=== PATIENT | female | born 1985 | race African-American/Black ===

== ENCOUNTER 2016-08-22 10:25 | Emergency (ER) | payer OTHER ==
[~2016-08-22] VITALS: Ht 175.2 cm; Wt 113.4 kg
[~2016-08-22 10:25] MED LIST: ANAPROX DS550 MG PO; BACTRIM DS 8001 TA1 PO; CIPROFLOXACIN500 MG PO; FLAGYL500 MG PO; IBU800 MG PO; MEDROL DOSEPAK4 MG PO; PYRIDIUM200 MG PO
== END 2016-08-22 14:28 | disposition home or self-care (01) ==
LOC: ED 10:25
DX: S90.02XA Contusion of left ankle, initial encounter (principal); F17.200 Nicotine dependence, unspecified, uncomplicated; X58.XXXA Exposure to other specified factors, initial encounter; Y93.89 Activity, other specified; Y92.9 Unspecified place or not applicable; Y99.9 Unspecified external cause status

== ENCOUNTER 2017-03-27 08:45 | Emergency (ER) | payer OTHER ==
[~2017-03-27] VITALS: Ht 175.2 cm; Wt 136.1 kg
[2017-03-27] MEDS ORDERED: ALBUTEROL S5 MG/1 ML INH (08:50)
[2017-03-27] MEDS ORDERED: ALL DAY ALLERGY10 MG PO (08:50)
[2017-03-27] MEDS ORDERED: PHENTERMINE H37.5 M1 PO (08:50)
[2017-03-27] MEDS ORDERED: OMEPRAZOLE D/R20 MG PO (08:51)
[2017-03-27] MEDS ORDERED: PROVENTIL HFA6.7 GM INH (08:51)
[2017-03-27] MEDS ORDERED: METFORMIN HCL1000 MG PO (08:52)
[2017-03-27] MEDS ORDERED: BUPROPION HYDR100 MG PO (08:52)
[2017-03-27] MEDS ORDERED: HYDROXYZINE PAM25 M1 PO (08:52)
[2017-03-27] MEDS ORDERED: TRAZODONE50 MG PO (08:53)
[2017-03-27] MEDS ORDERED: LORAZEPAM0.5 MG PO (08:53)
[2017-03-27] MEDS ORDERED: SEPTDS PO (09:10)
== END 2017-03-27 09:41 | disposition home or self-care (01) ==
LOC: ED 08:45
DX: L02.412 Cutaneous abscess of left axilla (principal); F17.200 Nicotine dependence, unspecified, uncomplicated; E66.01 Morbid (severe) obesity due to excess calories; Z68.41 Body mass index [BMI] 40.0-44.9, adult; Z79.899 Other long term (current) drug therapy

== ENCOUNTER 2018-11-24 17:11 | Emergency (ER) | payer OTHER ==
[~2018-11-24 17:11] MED LIST changes: +ALBUTEROL S5 MG/1 ML INH; +ALL DAY ALLERGY10 MG PO; +BUPROPION HYDR100 MG PO; +CEFUROXIME AXE500 MG PO; +HYDROXYZINE PAM25 M1 PO; +LORAZEPAM0.5 MG PO; +METFORMIN HCL1000 MG PO; +OMEPRAZOLE D/R20 MG PO; +PHENTERMINE H37.5 M1 PO; +PROVENTIL HFA6.7 GM INH; +PYRIDIUM200 M1 PO; +SEPTDS PO; +TRAZODONE50 MG PO
[2018-11-24] MEDS ORDERED: AUGMENTIN 875875 MG PO (18:04)
== END 2018-11-24 19:12 | disposition home or self-care (01) ==
LOC: ED 17:11
DX: S51.851A Open bite of right forearm, initial encounter (principal); Z79.2 Long term (current) use of antibiotics; Z79.899 Other long term (current) drug therapy; W54.0XXA Bitten by dog, initial encounter; Y93.89 Activity, other specified; Y92.89 Other specified places as the place of occurrence of the external cause; Y99.8 Other external cause status

== ENCOUNTER 2018-11-27 14:21 | Emergency (ER) | payer OTHER ==
[~2018-11-27] VITALS: Ht 175.2 cm; Wt 122.5 kg
[~2018-11-27 14:21] MED LIST changes: +AUGMENTIN 875875 MG PO
== END 2018-11-27 14:58 | disposition home or self-care (01) ==
LOC: ED 14:21
DX: S51.851D Open bite of right forearm, subsequent encounter (principal); Z79.2 Long term (current) use of antibiotics; Z79.899 Other long term (current) drug therapy; W54.0XXD Bitten by dog, subsequent encounter

== ENCOUNTER 2019-04-06 08:31 | Emergency (ER) | payer OTHER ==
[~2019-04-06] VITALS: Ht 175.2 cm; Wt 122.5 kg
[2019-04-06 09:27] LABS: BILIRUBIN NEGATIVE (NEGATIVE); BLOOD NEGATIVE (NEGATIVE); CLARITY CLOUDY (CLEAR); COLOR YELLOW (YELLOW); GLUCOSE NEGATIVE (NEGATIVE); KETONE NEGATIVE (NEGATIVE); PH 6.5 (5.0-9.0)
[2019-04-06 09:28] LABS: LEUKO ESTERASE NEGATIVE (NEGATIVE); NITRITE NEGATIVE (NEGATIVE); UROBILINOGEN 0.2 E.U./dl (0.2-1.0)
[2019-04-06 09:46] LABS: BACTERIA TRACE; EPITHELIAL CELLS TNTC
[2019-04-06] MEDS ORDERED: DICLEGIS DR 101 EACH PO (10:30)
[2019-04-06] MEDS ORDERED: ZITHROMAX250 MG PO (10:30)
== END 2019-04-06 10:56 | disposition home or self-care (01) ==
LOC: ED 08:31
PROVIDERS: Emergency Medicine
DX: O99.511 Diseases of the respiratory system complicating pregnancy, first trimester (principal); J32.9 Chronic sinusitis, unspecified; J02.9 Acute pharyngitis, unspecified; O99.611 Diseases of the digestive system complicating pregnancy, first trimester; R19.7 Diarrhea, unspecified; O99.341 Other mental disorders complicating pregnancy, first trimester; F41.9 Anxiety disorder, unspecified; F32.9 Major depressive disorder, single episode, unspecified; O99.331 Smoking (tobacco) complicating pregnancy, first trimester; Z3A.01 Less than 8 weeks gestation of pregnancy; Z79.2 Long term (current) use of antibiotics; Z79.899 Other long term (current) drug therapy; Z79.84 Long term (current) use of oral hypoglycemic drugs

== ENCOUNTER → 2019-04-10 | Outpatient (CLI) | payer OTHER ==
[~2019-04-10] MED LIST changes: +DICLEGIS DR 101 EACH PO; +ZITHROMAX250 MG PO
== END | disposition home or self-care (01) ==
LOC: US 15:00
DX: N85.8 Other specified noninflammatory disorders of uterus (principal); R10.2 Pelvic and perineal pain

== ENCOUNTER 2019-12-01 08:41 | Emergency (ER) | payer OTHER ==
[~2019-12-01] VITALS: Wt 127.0 kg
[2019-12-01] MEDS ORDERED: ZYRTEC10 M2 PO (09:08)
[2019-12-01] MEDS ORDERED: OMNICEF300 MG PO (09:08)
== END 2019-12-01 09:13 | disposition home or self-care (01) ==
LOC: ED 08:41
DX: H66.91 Otitis media, unspecified, right ear (principal); F41.9 Anxiety disorder, unspecified; Z79.899 Other long term (current) drug therapy

== ENCOUNTER → 2020-01-24 | Outpatient (CLI) | payer OTHER ==
[~2020-01-24] MED LIST changes: +OMNICEF300 MG PO; +ZYRTEC10 M2 PO
== END | disposition home or self-care (01) ==
LOC: US 13:17
PROVIDERS: ATTEND Nurse Practitioner Women's Health
DX: Z33.1 Pregnant state, incidental (principal); Z3A.11 11 weeks gestation of pregnancy

== ENCOUNTER → 2020-03-11 | Outpatient (CLI) | payer OTHER | END | disposition home or self-care (01) | LOC: US 10:30 | PROVIDERS: ATTEND Obstetrics & Gynecology | DX: O36.8120 Decreased fetal movements, second trimester, not applicable or unspecified (principal); Z3A.18 18 weeks gestation of pregnancy ==

== ENCOUNTER → 2020-03-25 | Outpatient (CLI) | payer OTHER | END | disposition home or self-care (01) | LOC: US 14:00 | PROVIDERS: ATTEND Obstetrics & Gynecology | DX: Z34.92 Encounter for supervision of normal pregnancy, unspecified, second trimester (principal); Z3A.20 20 weeks gestation of pregnancy ==

== ENCOUNTER → 2020-05-22 | Outpatient (CLI) | payer OTHER | END | disposition home or self-care (01) | LOC: LAB 10:00 | PROVIDERS: ATTEND Obstetrics & Gynecology | DX: Z34.82 Encounter for supervision of other normal pregnancy, second trimester (principal); Z3A.28 28 weeks gestation of pregnancy ==

== ENCOUNTER → 2020-06-23 | Outpatient (CLI) | payer OTHER | END | disposition home or self-care (01) | LOC: US 11:55 | PROVIDERS: ATTEND Nurse Practitioner Women's Health | DX: Z34.83 Encounter for supervision of other normal pregnancy, third trimester (principal); Z3A.33 33 weeks gestation of pregnancy ==

== ENCOUNTER → 2020-07-17 | Outpatient (CLI) | payer OTHER | END | disposition home or self-care (01) | LOC: US 14:00 | PROVIDERS: ATTEND Obstetrics & Gynecology | DX: Z34.83 Encounter for supervision of other normal pregnancy, third trimester (principal); Z3A.36 36 weeks gestation of pregnancy ==

== ENCOUNTER → 2021-01-30 | Outpatient (CLI) | payer OTHER | END | disposition home or self-care (01) | LOC: RAD 10:41 | PROVIDERS: ATTEND Internal Medicine Nephrology | DX: J45.901 Unspecified asthma with (acute) exacerbation (principal) ==

== ENCOUNTER 2021-02-05 18:25 | Emergency (ER) | payer OTHER ==
[2021-02-05] MEDS ORDERED: CEPHALEXIN500 M1 PO (20:26)
== END 2021-02-05 20:39 | disposition home or self-care (01) ==
LOC: ED 18:25
DX: L02.412 Cutaneous abscess of left axilla (principal)

== ENCOUNTER → 2021-07-27 | Outpatient (CLI) | payer OTHER ==
[~2021-07-27] MED LIST changes: +CEPHALEXIN500 M1 PO
== END ==
LOC: LAB 11:07
PROVIDERS: ATTEND Nurse Practitioner Women's Health
DX: J02.9 Acute pharyngitis, unspecified (principal)

== ENCOUNTER 2021-09-10 09:51 | Emergency (ER) | payer OTHER ==
[~2021-09-10] VITALS: Ht 175.2 cm; Wt 113.4 kg
[2021-09-10] MEDS ORDERED: CLINDAMYCIN HC300 MG PO (10:22)
== END 2021-09-10 10:27 | disposition home or self-care (01) ==
LOC: ED 09:51
DX: S61.411A Laceration without foreign body of right hand, initial encounter (principal); F17.200 Nicotine dependence, unspecified, uncomplicated; W25.XXXA Contact with sharp glass, initial encounter; Y93.89 Activity, other specified; Y92.89 Other specified places as the place of occurrence of the external cause; Y99.8 Other external cause status

== ENCOUNTER 2021-09-20 09:31 | Emergency (ER) | payer OTHER ==
[~2021-09-20 09:31] MED LIST changes: +CLINDAMYCIN HC300 MG PO
[2021-09-20] MEDS ORDERED: AUGMENTIN 500500 M1 PO (10:22)
== END 2021-09-20 10:45 | disposition home or self-care (01) ==
LOC: ED 09:31
DX: L02.412 Cutaneous abscess of left axilla (principal); E66.9 Obesity, unspecified; Z79.2 Long term (current) use of antibiotics; Z68.33 Body mass index [BMI] 33.0-33.9, adult

== ENCOUNTER → 2021-09-24 | Outpatient (CLI) | payer OTHER ==
[~2021-09-24] MED LIST changes: +AUGMENTIN 500500 M1 PO
== END | disposition home or self-care (01) ==
LOC: COVID19 00:29
PROVIDERS: ATTEND Internal Medicine
DX: Z20.822 Contact with and (suspected) exposure to COVID-19 (principal)

== ENCOUNTER → 2021-11-10 | Outpatient (CLI) | payer OTHER ==
[2021-11-10 10:03] LABS: BASO # 0.1 10*3/uL (0.0-0.1); BASO % 0.7 % (0.0-1.0); EOS # 0.3 10*3/uL (0.0-0.4); EOS % 2.8 % (1.0-4.0); HEMATOCRIT 41.9 % (37.0-47.0); LYMPH # 3.4 10*3/uL (1.3-4.4); LYMPH % 28.9 % (27.0-41.0); MEAN CELL VOLUME 89.3 fl (81.0-99.0); MEAN CORPUSCULAR HGB 28.6 pg (27.0-31.0); MEAN PLATELET VOLUME 10.4 fl (9.6-12.3); MONO # 0.5 10*3/uL (0.1-1.0); MONO % 4.1 % (3.0-9.0); NEUT # 7.3 10*3/uL (2.3-7.9); NEUT % 63.1 % (47.0-73.0); PLATELET COUNT AUTOMATED 345 10*3/uL (130-400); RED BLOOD COUNT 4.69 10*6/uL (4.10-5.10); RED CELL DISTRI WIDTH 13.2 % (0-14.5); WHITE BLOOD COUNT 11.6 10*3/uL (4.8-10.8)
[2021-11-10 10:31] LABS: BUN 10 mg/dl (7-24); CHLORIDE 110 mmol/L (98-107); CREATININE 0.64 mg/dL (0.55-1.02); POTASSIUM 4.1 mmol/L (3.5-5.1); SGOT/AST 7 IU/L (3-35); SGPT/ALT 18 U/L (12-78); SODIUM 139 mmol/L (136-145)
[2021-11-10 10:43] LABS: ALKALINE PHOSPHATASE 78 U/L (45-117); TOTAL PROTEIN 6.7 gm/dL (6.4-8.2)
== END | disposition home or self-care (01) ==
LOC: LAB 09:43
PROVIDERS: ATTEND Internal Medicine Nephrology
DX: J44.1 Chronic obstructive pulmonary disease with (acute) exacerbation (principal)

== ENCOUNTER 2022-09-16 11:23 | Emergency (ER) | payer OTHER ==
[2022-09-16] MEDS ORDERED: CLEOCIN HCL300 MG PO (12:08)
== END 2022-09-16 13:15 | disposition home or self-care (01) ==
LOC: ED 11:23
DX: K04.7 Periapical abscess without sinus (principal); Z79.2 Long term (current) use of antibiotics

== ENCOUNTER 2022-09-18 17:03 | Emergency (ER) | payer OTHER ==
[~2022-09-18] VITALS: Ht 177.8 cm; Wt 99.8 kg
[~2022-09-18 17:03] MED LIST changes: +CLEOCIN HCL300 MG PO
[2022-09-18] MEDS ORDERED: NAPROSYN500 MG PO (18:16)
== END 2022-09-18 18:25 | disposition home or self-care (01) ==
LOC: ED 17:03
DX: M17.12 Unilateral primary osteoarthritis, left knee (principal); F41.9 Anxiety disorder, unspecified; F32.A Depression, unspecified

== ENCOUNTER 2022-09-29 16:11 | Emergency (ER) | payer OTHER ==
[~2022-09-29] VITALS: Ht 175.2 cm; Wt 131.5 kg
[~2022-09-29 16:11] MED LIST changes: +NAPROSYN500 MG PO
== END 2022-09-29 17:28 | disposition left against medical advice (07) ==
LOC: ED 16:11
DX: K08.89 Other specified disorders of teeth and supporting structures (principal); Z53.21 Procedure and treatment not carried out due to patient leaving prior to being seen by health care provider

== ENCOUNTER 2022-10-02 09:00 | Emergency (ER) | payer OTHER ==
[~2022-10-02] VITALS: Ht 172.7 cm; Wt 124.7 kg
[2022-10-02 09:48] LABS: BILIRUBIN Negative (Negative); BLOOD Negative (Negative); CLARITY Cloudy (Clear); COLOR Yellow (Yellow); GLUCOSE Negative (Negative); KETONE Negative (Negative); LEUKO ESTERASE 1+ (Negative); NITRITE Negative (Negative); PH 5.5 (4.5-8.0); SPECIFIC GRAVITY 1.025 (1.001-1.030)
[2022-10-02] MEDS ORDERED: AMOXICILLIN500 M2 PO (09:56)
[2022-10-02] MEDS ORDERED: CLINDAMYCIN HC300 MG PO (09:56)
[2022-10-02] MEDS ORDERED: DIFLUCAN150 MG PO (09:56)
[2022-10-02 10:02] LABS: BACTERIA 2+; CALCIUM OXALATE CRYSTALS 1+; EPITHELIAL CELLS 16-20
[2022-10-02 10:03] LABS: MUCOUS 2+
== END 2022-10-02 10:08 | disposition home or self-care (01) ==
LOC: ED 09:00
PROVIDERS: Emergency Medicine
DX: K04.7 Periapical abscess without sinus (principal); N39.0 Urinary tract infection, site not specified; F41.9 Anxiety disorder, unspecified; F32.A Depression, unspecified; F17.200 Nicotine dependence, unspecified, uncomplicated

== ENCOUNTER 2023-02-01 11:48 | Emergency (ER) | payer OTHER ==
[~2023-02-01] VITALS: Wt 131.5 kg
[~2023-02-01 11:48] MED LIST changes: +AMOXICILLIN500 M2 PO; +DIFLUCAN150 MG PO
[2023-02-01] MEDS ORDERED: VIBRAMYCIN100 MG PO (12:12)
== END 2023-02-01 12:38 | disposition home or self-care (01) ==
LOC: ED 11:48
DX: L73.2 Hidradenitis suppurativa (principal); F41.9 Anxiety disorder, unspecified; F32.A Depression, unspecified

== ENCOUNTER 2023-02-23 08:58 | Emergency (ER) | payer OTHER ==
[~2023-02-23] VITALS: Wt 131.5 kg
[~2023-02-23 08:58] MED LIST changes: +VIBRAMYCIN100 MG PO
[2023-02-23 14:29] LABS: BASO # 0.1 10*3/uL (0.0-0.1); BASO % 0.9 % (0.0-1.0); EOS # 0.3 10*3/uL (0.0-0.4); EOS % 2.3 % (1.0-4.0); HEMATOCRIT 43.3 % (37.0-47.0); LYMPH % 26.6 % (27.0-41.0); MEAN CELL VOLUME 92.3 fl (81.0-99.0); MEAN CORPUSCULAR HGB 29.9 pg (27.0-31.0); MEAN CORPUSCULAR HGB CONC 32.3 g/dl (33.0-37.0); MEAN PLATELET VOLUME 10.2 fl (9.6-12.3); MONO # 0.5 10*3/uL (0.1-1.0); MONO % 4.6 % (3.0-9.0); NEUT # 7.2 10*3/uL (2.3-7.9); NEUT % 65.2 % (47.0-73.0); PLATELET COUNT AUTOMATED 303 10*3/uL (130-400); RED BLOOD COUNT 4.69 10*6/uL (4.10-5.10); RED CELL DISTRI WIDTH 14.7 % (0-14.5); WHITE BLOOD COUNT 11.1 10*3/uL (4.8-10.8)
[2023-02-23 14:36] LABS: ALKALINE PHOSPHATASE 73 U/L (46-116); BUN 6 mg/dl (9-23); CHLORIDE 105 mmol/L (98-107); LIPASE 43 U/L (12-53); POTASSIUM 3.7 mmol/L (3.4-5.1); SGPT/ALT 14 U/L (5-49); TOTAL PROTEIN 6.9 gm/dL (6.0-8.0)
[2023-02-23 14:37] LABS: BETA-HCG, QUANT < 3.0 mIU/mL (3-10)
[2023-02-23] MEDS ORDERED: Motrin,Rufen800 MG PO (16:14)
== END 2023-02-23 12:36 | disposition home or self-care (01) ==
LOC: ED 08:58
PROVIDERS: Nurse Practitioner
DX: R09.1 Pleurisy (principal); M79.10 Myalgia, unspecified site; F41.9 Anxiety disorder, unspecified; F32.A Depression, unspecified; R10.2 Pelvic and perineal pain

== ENCOUNTER → 2023-03-06 | Outpatient (CLI) | payer OTHER ==
[~2023-03-06] MED LIST changes: +Motrin,Rufen800 MG PO
[2023-03-06 16:49] LABS: BASO # 0.1 10*3/uL (0.0-0.1); BASO % 0.7 % (0.0-1.0); EOS # 0.4 10*3/uL (0.0-0.4); HEMATOCRIT 44.4 % (37.0-47.0); LYMPH # 3.8 10*3/uL (1.3-4.4); LYMPH % 31.7 % (27.0-41.0); MEAN CELL VOLUME 90.6 fl (81.0-99.0); MEAN CORPUSCULAR HGB 28.8 pg (27.0-31.0); MEAN CORPUSCULAR HGB CONC 31.8 g/dl (33.0-37.0); MEAN PLATELET VOLUME 10.1 fl (9.6-12.3); MONO # 0.4 10*3/uL (0.1-1.0); MONO % 3.5 % (3.0-9.0); NEUT # 7.2 10*3/uL (2.3-7.9); NEUT % 60.7 % (47.0-73.0); PLATELET COUNT AUTOMATED 354 10*3/uL (130-400); RED CELL DISTRI WIDTH 13.6 % (0-14.5); WHITE BLOOD COUNT 11.9 10*3/uL (4.8-10.8)
[2023-03-06 17:35] LABS: ALKALINE PHOSPHATASE 98 U/L (46-116); BUN 6 mg/dl (9-23); CHLORIDE 107 mmol/L (98-107); POTASSIUM 3.5 mmol/L (3.4-5.1); SGPT/ALT 13 U/L (5-49); TOTAL PROTEIN 7.1 gm/dL (6.0-8.0)
[2023-03-06 18:27] LABS: VITAMIN D, 25-HYDROXY 16.7 ng/mL (30-100)
[2023-03-07 07:06] LABS: HBSAG Negative (Negative); HEP B CORE AB, IGM Negative (Negative); HEPATITIS C ANTIBODY Non Reactive (Non Reactive)
== END | disposition home or self-care (01) ==
LOC: LAB 16:29
PROVIDERS: ATTEND Physician Assistant
DX: Z51.81 Encounter for therapeutic drug level monitoring (principal)

== ENCOUNTER → 2023-06-12 | Outpatient (CLI) | payer OTHER ==
[2023-06-12 11:57] LABS: ALKALINE PHOSPHATASE 81 U/L (46-116); BUN 9 mg/dl (9-23); CHLORIDE 104 mmol/L (98-107); CHOLESTEROL 258 mg/dL (<200); LDL CHOLESTEROL 154 mg/dL (9-159); POTASSIUM 4.2 mmol/L (3.4-5.1); SGPT/ALT 23 U/L (5-49); TOTAL PROTEIN 7.6 gm/dL (6.0-8.0); TRIGLYCERIDES 106 mg/dl (<150)
== END | disposition home or self-care (01) ==
LOC: LAB 11:02
PROVIDERS: ATTEND Hospitalist
DX: E66.01 Morbid (severe) obesity due to excess calories (principal); Z68.42 Body mass index [BMI] 45.0-49.9, adult

== ENCOUNTER 2023-08-31 18:05 | Emergency (ER) | payer OTHER ==
[~2023-08-31] VITALS: Ht 175.2 cm; Wt 136.1 kg
[2023-08-31] MEDS ORDERED: methylPREDNISolone sod succ 125 MG VIAL IM ONE (18:55)
[2023-08-31] MEDS ORDERED: Ketorolac Tromethamine 30 MG/ML VIAL IM ONE (18:55)
[2023-08-31] MEDS ORDERED: PREDNISONE50 MG PO (20:02)
== END 2023-08-31 20:12 | disposition home or self-care (01) ==
LOC: ED 18:05
DX: M25.562 Pain in left knee (principal); F41.9 Anxiety disorder, unspecified; F32.A Depression, unspecified

== ENCOUNTER 2024-06-26 16:39 | Emergency (ER) | payer OTHER ==
[~2024-06-26] VITALS: Ht 175.2 cm; Wt 136.1 kg
[~2024-06-26 16:39] MED LIST changes: +PREDNISONE50 MG PO
[2024-06-26] MEDS ORDERED: PHENAZOPYRIDIN200 M1 PO (18:34)
[2024-06-26] MEDS ORDERED: NITROFURANTOIN50 M2 PO (18:34)
[2024-06-26 19:27] LABS: BASO # 0.1 10*3/uL (0.0-0.1); BASO % 0.6 % (0.0-1.0); EOS # 0.4 10*3/uL (0.0-0.4); HEMATOCRIT 44.6 % (37.0-47.0); MEAN CELL VOLUME 87.3 fl (81.0-99.0); MEAN CORPUSCULAR HGB 28.8 pg (27.0-31.0); MEAN PLATELET VOLUME 10.6 fl (9.6-12.3); MONO # 0.7 10*3/uL (0.1-1.0); MONO % 5.8 % (3.0-9.0); NEUT # 6.8 10*3/uL (2.3-7.9); NEUT % 54.8 % (47.0-73.0); PLATELET COUNT AUTOMATED 336 10*3/uL (130-400); RED BLOOD COUNT 5.11 10*6/uL (4.10-5.10); WHITE BLOOD COUNT 12.5 10*3/uL (4.8-10.8)
[2024-06-26 19:48] LABS: BUN 8 mg/dl (9-23); CHLORIDE 105 mmol/L (98-107); CPK 41 U/L (34-171); POTASSIUM 4.3 mmol/L (3.4-5.1)
[2024-06-26 20:12] LABS: BILIRUBIN Negative (Negative); BLOOD Negative (Negative); CLARITY Clear (Clear); COLOR Yellow (Yellow); GLUCOSE Negative (Negative); KETONE Trace (Negative); LEUKO ESTERASE Trace (Negative); NITRITE Negative (Negative); PH 5.5 (4.5-8.0); SPECIFIC GRAVITY 1.025 (1.001-1.030)
[2024-06-26 20:48] LABS: BACTERIA 1+; CALCIUM OXALATE CRYSTALS 3+
[2024-06-26] MEDS ORDERED: METRONIDAZOLE500 M1 PO (22:53)
[2024-06-26] MEDS ORDERED: NAPROSYN500 MG PO (22:54)
[2024-06-26] MEDS ORDERED: metroNIDAZOLE 500 MG TAB PO ONE (22:55)
[2024-06-26] MEDS ORDERED: Ketorolac Tromethamine 60 MG/2 ML VIAL IM ONE (22:55)
== END 2024-06-26 23:10 | disposition home or self-care (01) ==
LOC: ED 16:39
PROVIDERS: Nurse Practitioner Family
DX: M47.816 Spondylosis without myelopathy or radiculopathy, lumbar region (principal); A59.9 Trichomoniasis, unspecified; M79.604 Pain in right leg; M79.605 Pain in left leg; E66.9 Obesity, unspecified; F32.A Depression, unspecified; F41.9 Anxiety disorder, unspecified; Z79.899 Other long term (current) drug therapy

== ENCOUNTER 2024-11-16 11:00 | Emergency (ER) | payer OTHER ==
[~2024-11-16] VITALS: Ht 175.2 cm; Wt 136.1 kg
[~2024-11-16 11:00] MED LIST changes: +METRONIDAZOLE500 M1 PO; +NITROFURANTOIN50 M2 PO; +PHENAZOPYRIDIN200 M1 PO
[2024-11-16] MEDS ORDERED: TRIAMCINOLONE ACETONIDE 0.1% CREAM 15 GM TUBE T ONE (12:00)
== END 2024-11-16 12:29 | disposition home or self-care (01) ==
LOC: ED 11:00
DX: M25.561 Pain in right knee (principal); F41.9 Anxiety disorder, unspecified; F32.A Depression, unspecified; E66.9 Obesity, unspecified